=== PATIENT | female | born 1950 | race Caucasian/White ===

== ENCOUNTER 2017-02-10 19:23 | Emergency (ER) | payer BC ==
[~2017-02-10] VITALS: Ht 167.6 cm; Wt 72.6 kg
[2017-02-10 19:23] VITALS: BP_SYST 180
[2017-02-10 20:45] VITALS: BP_SYST 160
== END 2017-02-10 20:45 | disposition home or self-care (01) ==
LOC: SED 19:23
DX: T70.0XXA Otitic barotrauma, initial encounter (principal); R07.0 Pain in throat; X58.XXXA Exposure to other specified factors, initial encounter
CPT/HCPCS: 99283

== ENCOUNTER 2020-05-05 07:59 | Emergency (ER) | payer BC ==
[~2020-05-05] VITALS: Ht 167.6 cm; Wt 81.6 kg
[2020-05-05 08:35] VITALS: BP_SYST 101
--- NOTE | 2020-05-05 08:59 | NUR ---
Patient to ER bed 03 to gown for evaluation. Side rails up.
--- NOTE | 2020-05-05 09:00 | NUR ---
Patient came from home for evaluation of shoulder pain, back pain, leg pain. 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
--- NOTE | 2020-05-05 09:07 | NUR ---
Patient does not wish to proceed with medical care recommended by Dr. Kraus. Patient given information related to possible complications, up to and including , which could occur as a result of leaving hospital at this time. Patient verbalizes understanding of risks involved leaving against medical advice. Patient has signed AMA form.
== END 2020-05-05 09:09 | disposition left against medical advice (07) ==
LOC: SED 07:59
DX: M54.5 Low back pain (principal); Z53.21 Procedure and treatment not carried out due to patient leaving prior to being seen by health care provider
CPT/HCPCS: 99281